=== PATIENT | male | born 1970 | race African-American/Black ===

== ENCOUNTER 2016-06-16 21:04 | Observation (INO) | payer OTHER ==
--- NOTE | ~2016-06-16 | OR ---
Unit #: [id number] #: [id number] Patient: GLENNY HARMON [id number] [address] [address] [id number] MR#: [id number] NAME: GLENNY HARMON. ROOM: 226 Date of Procedure: 06/17/2016 Admission Date: 06/16/2016 Surgeon: Brian Martinez M.D. : 1970 Attending Physician: Leonardo Hess M.D. Referring Physician: Primary Care Physician No Primary Care Physician: Primary Care Physician No OPERATIVE REPORT PREOPERATIVE DIAGNOSIS Perineal abscess. POSTOPERATIVE DIAGNOSIS Perineal abscess. PROCEDURE PERFORMED Incision and drainage of perineal abscess. ANESTHESIA 1% lidocaine without epi. PROCEDURE IN DETAIL The area of interest was prepped and draped in the usual fashion. 1% lidocaine was used to infuse the skin in the area for I and D. Then, an 11-blade was used to incise the anterior portion of the indurated perineal abscess. This was made in continuity with the previous 1 cm posterior incision done by the emergency room to make a total 3 cm incision. A hemostat was used to break up loculation and to open a wide pocket. The cavity was packed with 0.5 inch iodoform. Good hemostasis was assured. The patient tolerated the procedure well. COMPLICATIONS None. ESTIMATED BLOOD LOSS 5 mL. SPECIMENS None. PACKING Iodoform. PLAN The patient will continue daily dressing change with iodoform. His girlfriend was instructed to help him with this process. He feels comfortable doing this at home. We will follow up with him early next week for wound check. Dictated by... Unit #: [id number] #: [id number] Patient: GLENNY HARMON Viola Harley/yadiel TD: 06/18/2016 02:32 JOB #: [id number] OPERATIVE REPORT X BRIAN MARTINEZ MD PROCEDURE OPERATIVE NOTE
--- NOTE | ~2016-06-16 | HP ---
Unit #: [id number] #: [id number] Patient: GLENNY HARMON [id number] [address] [place], [place] [address] [id number] I MR#: [id number] NAME: GLENNY HARMON. ROOM: 226 Age: 45 Sex: M Admission Date: 06/16/2016 : 1970 Attending Physician: Leonardo Hess M.D. HISTORY AND PHYSICAL CHIEF COMPLAINT Perineal pain/abscess. HISTORY OF PRESENTING ILLNESS A 45-year-old male presenting with right perineal abscess. Pain onset for the past one week worsening. No fevers, nausea, or vomiting. No history of abscess requiring intervention in the past. White blood cell count was within normal limits at 12.8. He has been afebrile here in the hospital. A small I and D was done by the emergency department. He was admitted for IV antibiotics, and Urology was called to evaluate in the morning. PAST MEDICAL HISTORY Asthma. PAST SURGICAL HISTORY None. HOME MEDICATIONS He is on an inhaler. ALLERGIES Reviewed in the chart and noted. SOCIAL HISTORY Denies illicit drug use. FAMILY HISTORY Noncontributory. REVIEW OF SYSTEMS All systems negative except mentioned in the History of Present Illness. PHYSICAL EXAMINATION VITAL SIGNS: Afebrile. Vital signs stable. GENERAL: No apparently distress. Normal affect and mood. HEART: Regular rate and rhythm. Peripheral pulses palpable. CHEST: Nonlabored breathing on room air. Normal percussion of lungs. ABDOMEN: Soft, nontender, and nondistended. EXTREMITIES: No clubbing, cyanosis, or edema. Moves all extremities well. SKIN: No rashes or skin lesions on exposed skin. NEUROLOGIC: Normal sensation to light touch. Normal range of motion of all extremities. GENITOURINARY: Bilateral palpable testes without masses. Normal penis. Right perineal abscess. The posterior portion has been drained Unit #: [id number] #: [id number] Patient: GLENNY HARMON adequately. However, he has tenderness and induration anteriorly requiring further incision and drainage. See separate incision and drainage note. DIAGNOSTIC STUDIES LABORATORY: Reviewed in the chart and noted in the History of Present Illness. ASSESSMENT Perineal abscess. PLAN Will perform bedside I and D, pack with new gauze, and discharge home today on Augmentin and pain meds. Will follow up early next week for wound check. Follow wound cultures from ED. Dictated by Viola Harley TD: 06/17/2016 16:14 JOB #: [id number] HISTORY AND PHYSICAL X ROB MARTINEZ MD X HISTORY AND PHYSICAL
--- NOTE | ~2016-06-16 | DS ---
Unit #: [id number] #: [id number] Patient: GLENNY HARMON [id number] [address] [place], [place] [address] [id number] I MR#: [id number] NAME: GLENNY HARMON. ROOM: 226 Age: 45 Sex: M Admission Date: 06/16/2016 : 1970 Discharge Date: 06/17/2016 Attending Physician: Leonardo Hess M.D. Primary Care Physician: No Primary Care Physician DISCHARGE SUMMARY ADMISSION DIAGNOSIS Perineal abscess. PROCEDURE PERFORMED Incision and drainage at the bedside of perineal abscess. HOSPITAL COURSE A 45-year-old gentleman admitted for perineal abscess. White count was within normal limits. He was afebrile. Underwent I and D at the bedside by the emergency room, seen by urology today with good drainage of posterior aspect of abscess but poor drainage of anterior portion. A repeat I and D was performed and this was packed with iodoform. He tolerated the procedure well. He will be discharged today and followup with urology early next week for wound check. He and his girlfriend have agreed to do wound changing with iodoform daily. They were instructed on how to do so. He will be discharged with [place] and Augmentin x7 days. He will continue his home inhaler for asthma. DISCHARGE CONDITION Good. Dictated by... Viola Harley/juan c TD: 06/18/2016 12:28 JOB #: [id number] DISCHARGE SUMMARY X ROB MARTINEZ MD X DISCHARGE SUMMARY
[2016-06-16 19:57] LABS: BASOPHIL% 0.4 % (0-2.5); EOSINOPHIL# 0.2 X10e3 (0-0.7); EOSINOPHIL% 1.7 % (0.0-7.0); HEMOGLOBIN 15.5 gm/dL (13.0-16.0); LYMPHOCYTE# 1.4 X10e3 (1.0-3.5); MEAN CELL VOLUME 95.6 FL (83-96); MEAN CORPUSCULAR HEMOGLOBIN 32.2 PG (28-34); MEAN CORPUSCULAR HGB CONC 33.7 g/dL (30-36); MEAN PLATELET VOLUME 7.7 FL (6.5-11.5); MONOCYTE# 1.3 X10e3 (0-1.0); MONOCYTE% 10.2 % (3.0-12.0); NEUTROPHIL# 9.8 X10e3 (1.5-7.1); NEUTROPHIL% 76.7 % (40-75); PLATELET COUNT 308 X10e3 (140-420); RED BLOOD COUNT 4.81 X10e (3.90-5.60); RED CELL DISTRIBUTION WIDTH 14.2 % (11.0-15.5); WHITE BLOOD COUNT 12.8 X10e3 (4.0-10.5)
[2016-06-16 20:00] LABS: DIFF IND NO
[2016-06-16 20:15] LABS: BLOOD UREA NITROGEN 9 mg/dL (9-23); CALCIUM SERUM 9.3 mg/dL (8.4-10.2); CARBON DIOXIDE 21 mmol/L (22-31); CHLORIDE 103 mmol/L (100-111); GLOM FILT RATE Estimated ABOVE60 mL/min (>60); GLUCOSE FASTING 122 mg/dL (70-110); POTASSIUM 3.8 mmol/L (3.5-5.1); SODIUM 136 mmol/L (135-145)
[2016-06-17 07:21] LABS: BASOPHIL% 0.3 % (0-2.5); EOSINOPHIL# 0.3 X10e3 (0-0.7); EOSINOPHIL% 2.4 % (0.0-7.0); HEMATOCRIT 42.9 % (38.0-50.0); HEMOGLOBIN 14.3 gm/dL (13.0-16.0); LYMPHOCYTE# 1.4 X10e3 (1.0-3.5); LYMPHOCYTE% 13.5 % (17.0-45.0); MEAN CELL VOLUME 94.9 FL (83-96); MEAN CORPUSCULAR HEMOGLOBIN 31.7 PG (28-34); MEAN CORPUSCULAR HGB CONC 33.4 g/dL (30-36); MEAN PLATELET VOLUME 7.4 FL (6.5-11.5); MONOCYTE# 1.4 X10e3 (0-1.0); MONOCYTE% 13.3 % (3.0-12.0); NEUTROPHIL# 7.5 X10e3 (1.5-7.1); NEUTROPHIL% 70.5 % (40-75); PLATELET COUNT 300 X10e3 (140-420); RED BLOOD COUNT 4.52 X10e (3.90-5.60); RED CELL DISTRIBUTION WIDTH 14.5 % (11.0-15.5); WHITE BLOOD COUNT 10.7 X10e3 (4.0-10.5)
[2016-06-17 07:24] LABS: DIFF IND NO
[2016-06-17 07:39] LABS: BLOOD UREA NITROGEN 9 mg/dL (9-23); CALCIUM SERUM 8.7 mg/dL (8.4-10.2); CARBON DIOXIDE 23 mmol/L (22-31); CHLORIDE 104 mmol/L (100-111); GLOM FILT RATE Estimated ABOVE60 mL/min (>60); GLUCOSE FASTING 96 mg/dL (70-110); POTASSIUM 3.8 mmol/L (3.5-5.1); SODIUM 137 mmol/L (135-145)
[2016-06-17] MEDS ORDERED: ALBUTEROL17 GM INH (09:58)
[2016-06-17] MEDS ORDERED: HYDROCODON-ACE1 EAC9 PO (15:50)
[2016-06-17] MEDS ORDERED: AUGMENTIN PO (15:52)
== END 2016-06-17 16:49 | disposition home or self-care (01) ==
LOC: CED 21:04 → CEDOF 22:00 → C2A 06-17 08:01
PROVIDERS: Emergency Medicine; Preventive Medicine Occupational Medicine
DX: L02.215 Cutaneous abscess of perineum (principal); J45.909 Unspecified asthma, uncomplicated; I10 Essential (primary) hypertension; F17.200 Nicotine dependence, unspecified, uncomplicated
CPT/HCPCS: 10060; 36415; 56405; 80048; 85025; 87070; 87205; 96365; 96375; 99285; G0378; J0696; J1170